=== PATIENT | male | born 1980 | race Two or more races ===

== ENCOUNTER 2017-03-11 11:35 | Emergency (ER) | payer MEDICAID ==
[~2017-03-11] VITALS: Ht 172.7 cm; Wt 79.0 kg
[2017-03-11] MEDS ORDERED: SODIUM CHLORIDE 0.9% 1,000 ML IV ONE (12:30)
[2017-03-11] MEDS ORDERED: LORAZEPAM 2MG/ML CPJ IV ONE ×2 (12:30→19:45)
[2017-03-11 17:56] LABS: HEMATOCRIT. 43.2 % (42.0-52.0); MEAN CORPUSCULAR HGB CONC 34.6 g/dL (31.0-37.0); MEAN CORPUSCULAR VOLUME 86.7 fL (80.0-94.0); PLATELET 237 x1000/uL (130-400); RED BLOOD CELL COUNT 4.99 mill/uL (4.7-6.1); RED CELL DISTRIBUTION WIDTH 13.5 % (11.6-14.6); WHITE BLOOD COUNT 7.9 x1000/uL (4.5-11.0)
[2017-03-11 18:13] LABS: ACETAMINOPHEN < 2 ug/mL (10-30); ANION GAP 11; CALCIUM 8.2 mg/dL (8.5-10.1); CARBON DIOXIDE 26 mEq/L (21-32); CHLORIDE 110 mEq/L (98-107); INDEX HEMOLYSI 1 (1-3); INDEX ICTERIC 1 (1-4); INDEX LIPEMIC 1 (1-3); UREA NITROGEN BLOOD 10 mg/dL (7-21); eGFR > 60 mL/min (>60)
[2017-03-11 18:26] LABS: ATYPICAL LYMPHOCYTES 4; PLATELET ESTIMATE NORMAL
[2017-03-11] MEDS ORDERED: LORAZEPAM 2MG/ML CPJ IV NR (20:00)
[2017-03-11 21:29] LABS: CLARITY URINE CLEAR (CLEAR); COLOR URINE YELLOW (YELLOW); GLUCOSE URINE NEGATIVE (NEGATIVE); KETONES URINE NEGATIVE (NEGATIVE); LEUKOCYTE ESTERASE URINE NEGATIVE (NEGATIVE); NITRITE URINE NEGATIVE (NEGATIVE); OCCULT BLOOD URINE NEGATIVE (NEGATIVE); PROTEIN URINE NEGATIVE (NEGATIVE); SPECIFIC GRAVITY URINE 1.009 (1.005-1.030)
[2017-03-11 21:53] LABS: *AMPHETAMINES SCREEN URINE PRESUMTIVE POSITIVE (NEGATIVE); *BARBITURATES SCREEN URINE NEGATIVE (NEGATIVE); *BENZODIAZEPINES SCREEN URINE NEGATIVE (NEGATIVE); *COCAINE SCREEN URINE NEGATIVE (NEGATIVE); CANNABINOID URINE SCREEN NEGATIVE (NEGATIVE); ECSTASY MDMA SCREEN URINE NEGATIVE (NEGATIVE); METHADONE URINE SCREEN NEGATIVE (NEGATIVE); OPIATES URINE SCREEN NEGATIVE (NEGATIVE); PHENCYCLIDINE URINE SCREEN NEGATIVE (NEGATIVE)
[2017-03-11] MEDS ORDERED: POTASSIUM CHLORIDE 20MEQ TABLET SR PO SCH (22:45)
[2017-03-12] MEDS ORDERED: LORAZEPAM 1MG TABLET PO ONE (04:00)
[2017-03-12 14:06] VITALS: BP 137/104
== END 2017-03-12 14:08 | disposition home or self-care (01) ==
LOC: ER 11:59
DX: R45.851 Suicidal ideations (principal); F41.8 Other specified anxiety disorders; F43.0 Acute stress reaction
CPT/HCPCS: 36415; 80048; 80302; 80305; 80320; 80329; 81003; 85007; 85027; 93005; 96374; 96376; 99284; J2060; J7030; Z7610; 80307

== ENCOUNTER 2019-03-05 12:29 | Emergency (ER) | payer MEDICAID ==
[~2019-03-05] VITALS: Ht 180.3 cm; Wt 86.3 kg
[2019-03-05] MEDS ORDERED: KETOROLAC 60MG/2ML VIAL IM STA (16:53)
[2019-03-05] MEDS ORDERED: VANCOMYCIN 1 G PREMIX 200 ML IV ONE (17:00)
[2019-03-05] MEDS ORDERED: BACITRACIN ZINC OINT UDPKT TOP ONE (17:00)
[2019-03-05] MEDS ORDERED: LIDOCAINE HCL/PF 1% 10 MG/ML 5ML VIAL IJ ONE (17:00)
[2019-03-05 19:43] VITALS: BP 109/64
== END 2019-03-05 20:02 | disposition home or self-care (01) ==
LOC: ER 12:29
DX: S60.862A Insect bite (nonvenomous) of left wrist, initial encounter (principal); N61.1 Abscess of the breast and nipple; W57.XXXA Bitten or stung by nonvenomous insect and other nonvenomous arthropods, initial encounter; Y93.9 Activity, unspecified; Y92.9 Unspecified place or not applicable
CPT/HCPCS: 10060; 73110; 96365; 96366; 96372; 99283; J1885; J3370; J3490; Z7610

== ENCOUNTER 2019-03-07 16:12 | Emergency (ER) | payer MEDICAID ==
[~2019-03-07] VITALS: Ht 180.3 cm; Wt 88.0 kg
[2019-03-07 19:30] VITALS: BP 124/70
== END 2019-03-07 21:05 | disposition home or self-care (01) ==
LOC: ER 16:12
DX: Z48.00 Encounter for change or removal of nonsurgical wound dressing (principal)
CPT/HCPCS: 99283